=== PATIENT | female | born 2000 | race Caucasian/White ===

== ENCOUNTER 2023-10-18 18:58 | Emergency (ER) | payer OTHER, SELFPAY ==
[2023-10-18 19:09] VITALS: BP 128/87; PULSE 89; RESP 16; TEMP 37.2; O2SAT 99
--- NOTE | 2023-10-18 19:37 | PC.NURSE ---
in br to obtain ua spec.
--- NOTE | 2023-10-18 19:44 | ED.GENADULT ---
HPI - General Adult General Chief complaint: Upper Respiratory Infection Stated complaint: Ringing in Ear/Chills/Confussion Source: patient Mode of arrival: ambulatory Limitations: no limitations History of Present Illness HPI narrative: Patient presents for evaluation of a painful ?bump? behind her left ear. She noticed her symptoms within the last day. For the past week she has had several other symptoms including headache, bilateral tinnitus with symptoms worse on the left, muffled hearing, fatigue and hot flashes. No chills, nausea, vomiting, diarrhea, cough, SOB or urinary symptoms. No recent sick contacts to her knowledge. She does not smoke. Related Data Allergies Allergy/AdvReac Type Severity Reaction Status Date / Time No Known Allergies Allergy Unverified 10/18/23 19:04 Review of Systems Review of Systems: CONSTITUTIONAL: Reports hot flashes and fatigue. denies fever, chills, or sweats. EYES: Denies visual changes, redness, or discharge. ENT: Reports tinnitus and muffled hearing in both ears, left greater than the right. CARDIOVASCULAR: Denies chest pain, palpitations, or edema. RESPIRATORY: Denies cough or dyspnea. GASTROINTESTINAL: Denies abdominal pain, nausea, vomiting, or diarrhea. GENITOURINARY: Denies dysuria or hematuria. SKIN: Reports painful bump behind the left ear. MUSCULOSKELETAL: Denies back pain, joint pain, or myalgia. NEUROLOGIC:Reports headache. Denies numbness, dizziness, or weakness. PSYCHIATRIC: Denies anxiety or depression. [facility] Past Medical History Medical History No pertinent past medical history Surgical History Surgical History History of tonsillectomy Family History Family History Mother Family history non-contributory Social History Social History Smoking status: Never smoker Alcohol intake: never Substance use: never Living arrangements: with family Gender identity (if verbalized by the patient): Female Sexual Orientation (if Verbalized by the Patient): Straight or Heterosexual Spiritual care concerns: No Exam Narrative: GENERAL: Well-appearing, well-nourished, and in no acute distress. HEAD: Normocephalic, atraumatic. EYES: PERRLA and EOMI. ENT: Nares clear, no rhinorrhea or epistaxis. Mucous membranes moist. Oropharynx without tonsillar hypertrophy exudate or other lesions. Tonsils are surgically absent. there is scarring present to the left tympanic membrane NECK: Supple. No adenopathy or masses. No carotid bruits or JVD CHEST: Clear to auscultation. No respiratory distress. No wheezes rales or rhonchi HEART: Regular rate and rhythm. No murmur heard. Normal peripheral pulses. ABDOMEN: Soft, nontender, nondistended, normal active bowel sounds. EXTREMITIES: Normal range of motion. No edema. SKIN: There is an approximately 1.5 cm palpable postauricular lymph node on the left side with surrounding redness NEURO: No focal deficits. Alert and oriented x3. PSYCH: Normal mood and affect. Course Course Emergency Course: This is a 22-year-old female who presented for evaluation of a painful swollen lesion pen left ear. Exam reveals lymphadenopathy. [place], COVID, flu, strep were all negative. Etiology unclear. Will cover her with some oral antibiotics. She will follow up with primary provider. Go to the ER for worsening symptoms. Pt in agreement with plan of care. Level of Care: Express Care Visit Vital Signs Vital signs: Vital Signs Temperature 37.2 C 10/18/23 19:09 Pulse Rate 89 10/18/23 19:09 Respiratory Rate 16 10/18/23 19:09 Blood Pressure 128/87 10/18/23 19:09 Pulse Oximetry 99 10/18/23 19:09 Oxygen Delivery Room Air 10/18/23 19:09 Temperature 37.2 C 10/18/23 19:
== END 2023-10-18 19:58 | disposition home or self-care (01) ==
PROVIDERS: Emergency Provider Nurse Practitioner; PCP Physician Assistant
DX: R59.1 Generalized enlarged lymph nodes (principal); Z20.822 Contact with and (suspected) exposure to COVID-19
CPT/HCPCS: 36416; 81003; 86308; 87081; 87426; 87804; 87880; 99213; G0463

== ENCOUNTER 2024-03-20 12:59 | Emergency (ER) | payer OTHER, SELFPAY ==
[2024-03-20 13:08] VITALS: BP 131/73; PULSE 99; RESP 20; TEMP 36.1; O2SAT 100
--- NOTE | 2024-03-20 16:53 | ED.GENADULT ---
HPI - General Adult General Chief complaint: Urogenital-Female Stated complaint: STD Exposed Time Seen by Provider: 03/20/24 13:33 Source: patient, RN notes reviewed and old records reviewed Mode of arrival: ambulatory Limitations: no limitations History of Present Illness HPI narrative: 23-year-old female to [facility] requesting testing for Trichomonas. Patient states he was contacted by a sexual partner who indicated he had tested positive for Trichomonas. Patient denies vaginal itching, irritation, pain, vaginal discharge, urinary changes. Patient denies any complaints at this time states that she just wants to be tested. Patient's last sexual contact with this person was 2 weeks ago. patient in no acute distress. Related Data Allergies Allergy/AdvReac Type Severity Reaction Status Date / Time prednisone Allergy Unknown Verified 03/20/24 13:37 Review of Systems Review of Systems: All systems reviewed & are unremarkable except as noted in HPI and below Constitutional: Constitutional: Reports no additional constitutional complaints Eyes: Eyes: Reports no additional eye complaints ENT: Reports system reviewed and no additional complaints, except as documented Cardiovascular: Cardiovascular: Reports no additional cardiovascular complaints, Denies chest pain and Denies dyspnea Respiratory: Respiratory: Reports no additional respiratory complaints, Denies cough and Denies dyspnea Genitourinary: Genitourinary: Reports as per HPI, Denies abnormal vaginal bleeding, Denies hematuria, Denies urinary frequency, Denies post void dribbling, Denies nocturia, Denies genital pruritis, Denies genital lesions, Denies dyspareunia, Denies dysuria, Denies pelvic pain, Denies sexual dysfunction, Denies flank pain, Denies urinary incontinence, Denies urinary hesitancy, Denies urinary urgency, Denies vaginal discharge, Denies vaginal dryness, Denies vaginal odor and Denies vaginal pruritus Musculoskeletal: Musculoskeletal: Reports no additional musculoskeletal complaints Neurologic: Reports system reviewed and no additional complaints, except as documented Psychiatric: Psychiatric: Reports no additional psychiatric complaints PMFSH Past Medical History Medical History No pertinent past medical history Surgical History Surgical History History of tonsillectomy Family History Family History Mother Family history non-contributory Social History Social History (Updated 10/18/23 @ 20:01 by DAYSI Hurley, ) Smoking status: Never smoker Alcohol intake: never Substance use: never Living arrangements: with family Gender identity (if verbalized by the patient): Female Sexual Orientation (if Verbalized by the Patient): Straight or Heterosexual Spiritual care concerns: No Comments At the time of my signature, I reviewed and agree with the nursing past medical, surgical, social, and family history. There is no relevant family history pertinent to the patient complaint. Exam Const: General: cooperative, healthy appearing, comfortable, no acute distress, alert and well nourished Nutritional Appearance: well nourished Orientation/consciousness: patient oriented x3 Limitations: no limitations HENMT: Head: normal to inspection Ears: external ears normal Face/Nose/Sinus: Normal external nose present, Normal nares present, normal facial exam, No erythema and No edema Face and sinus: normal facial exam, no erythema and no edema Mouth: Yes Normal oral and palatal mucosa present Eyes: General: appearance normal, both eyes and all related structures Neck: Neck: normal visual inspection, full ROM and no meningeal signs Lymphatic: no lymphadenopathy noted and no lymphedema noted Chest: Chest palpation & inspection: normal inspection
[2024-03-20 20:35] LABS: Trichomonas Vag PCR NOT DETECTED (NOT DETECTE)
== END 2024-03-20 14:20 | disposition home or self-care (01) ==
PROVIDERS: Emergency Provider Nurse Practitioner Family
DX: Z11.3 Encounter for screening for infections with a predominantly sexual mode of transmission (principal)
CPT/HCPCS: 87661; 99213; G0463